=== PATIENT | male | born 1960 | race Caucasian/White ===

== ENCOUNTER 2024-05-22 10:32 | Emergency (ER) | payer OTHER ==
[2024-05-22] MEDS ORDERED: Iopamidol-370 76% 500 ML MDV (1 ML CHARGE) ONE (11:16)
[2024-05-22 11:42] LABS: Bacteria/HPF None Seen HPF (None Seen); Bilirubin Negative (Negative); Blood, Urine 1+ (Negative); CAUTI Indications for Culture Pelvic or flank pain; Clarity Clear (Clear); Glucose, Urine (Dipstick) Normal (Negative); Ketone, Urine Negative (Negative); Leukocyte Negative Leu/uL (Negative); Nitrite Negative (Negative); Protein, Urine (Dipstick) Negative (Neg-Trace); Specific Gravity, Urine 1.021 (1.002-1.036); Squamous Epithelial None Seen HPF (0-3); Urobilinogen Normal mg/dL (Less than 2); WBC/HPF 0-3 HPF (0-3); pH, Urine 6.5 (5.0-9.0)
[2024-05-22 11:43] LABS: Urine Culture Reflex No No
[2024-05-22 11:43] LABS: ALT (SGPT) 52 U/L (8-55); AST (SGOT) 67 U/L (5-34); Albumin 2.5 g/dL (3.4-4.8); Alkaline Phosphatase 88 U/L (40-110); Anion Gap 10 mmol/L (10-20); BUN (Urea Nitrogen) 8 mg/dL (8.4-25.7); Bilirubin, Total 2.3 mg/dL (0.2-1.2); Calc. Creatinine Clearance 0 mL/min (70-130); Carbon Dioxide 27 mmol/L (23-31); Chloride 104 mmol/L (98-107); Estimated GFR 96; Glucose 108 mg/dL (80-115); Lipase 17 U/L (8-78); Magnesium 1.6 mg/dL (1.6-2.6); Potassium 3.9 mmol/L (3.5-5.1); Protein, Total 6.5 g/dL (5.8-8.1); Sodium 137 mmol/L (136-145)
[2024-05-22 12:04] LABS: #Basophils 0.06 10x3/uL (0.0-0.2); %Basophils 1.1 % (0.0-1.0); %Eosinophils 14.6 % (0.0-10.0); %Lymphocytes 28.2 % (21.0-51.0); %Monocytes 8.6 % (0.0-10.0); %Neutrophils 47.3 % (42.0-75.0); Hematocrit 33.8 % (42.0-52.0); Hemoglobin 11.5 g/dL (14.0-18.0); Mean Corpuscular Hemoglobin 30.9 pg (27.0-31.0); Mean Corpuscular Volume 90.9 fL (78.0-98.0); Mean Platelet Volume 10.9 fL (7.4-10.4); Platelet Count 103 10x3/uL (130-400); Red Blood Cell (RBC) Count 3.72 mill/uL (4.70-6.10)
[2024-05-22 12:08] LABS: INR-International Normal Ratio 1.7; Prothrombin Time 19.9 sec (12.0-14.7)
[2024-05-22 12:09] LABS: PTT 41.1 sec (22.9-36.1)
[2024-05-22 13:17] LABS: Troponin I Less than 0.010 ng/mL (< 0.028)
[2024-05-22 13:57] LABS: RBC Count-Automated (BF) 34 /cu.mm; WBC/Nucleated-Auto (BF) 91 /cu.mm
[2024-05-22 14:30] LABS: BF Color Yellow; Body Fluid Source Ascites Body Fluid; Clarity Clear (Clear); Tube # 1
[2024-05-22 14:41] LABS: BF Segmented Neutrophils 11 %; Cell Count Non Hematic 65 %; Lymphocytes 24 %
== END 2024-05-22 15:34 | disposition home or self-care (01) ==
LOC: ERS 10:32
DX: R18.8 Other ascites (principal); I11.0 Hypertensive heart disease with heart failure; I50.9 Heart failure, unspecified
CPT/HCPCS: 12001; 49082; 71045; 74177; 76705; 80053; 81001; 82042; 82945; 83690; 83735; 83880; 84157; 84484; 85025; 85060; 85610; 85730; 87070; 87205; 89051; 93005; Q9967

== ENCOUNTER 2024-06-01 08:56 | Emergency (ER) | payer OTHER ==
[2024-06-01] MEDS ORDERED: Furosemide 40 MG (4 mL) VIAL ONE (10:35)
[2024-06-01 10:53] LABS: #Basophils 0.07 10x3/uL (0.0-0.2); %Basophils 1.2 % (0.0-1.0); %Eosinophils 16.6 % (0.0-10.0); %Lymphocytes 23.8 % (21.0-51.0); %Monocytes 11.6 % (0.0-10.0); %Neutrophils 46.6 % (42.0-75.0); Hematocrit 34.4 % (42.0-52.0); Hemoglobin 11.6 g/dL (14.0-18.0); Mean Corpuscular HGB CONC 33.7 g/dL (32.0-36.0); Mean Corpuscular Hemoglobin 30.1 pg (27.0-31.0); Mean Corpuscular Volume 89.4 fL (78.0-98.0); Platelet Count 119 10x3/uL (130-400); RBC Distribution Width 14.1 % (11.5-14.5); Red Blood Cell (RBC) Count 3.85 mill/uL (4.70-6.10)
[2024-06-01 11:07] LABS: ALT (SGPT) 45 U/L (8-55); AST (SGOT) 69 U/L (5-34); Albumin 2.6 g/dL (3.4-4.8); Alkaline Phosphatase 102 U/L (40-110); Anion Gap 11 mmol/L (10-20); BUN (Urea Nitrogen) 11 mg/dL (8.4-25.7); Bilirubin, Total 2.1 mg/dL (0.2-1.2); Calc. Creatinine Clearance 0 mL/min (70-130); Calcium 8.1 mg/dL (7.8-10.44); Carbon Dioxide 27 mmol/L (23-31); Chloride 104 mmol/L (98-107); Estimated GFR 96; Glucose 100 mg/dL (80-115); Potassium 4.4 mmol/L (3.5-5.1); Protein, Total 6.6 g/dL (5.8-8.1); Sodium 138 mmol/L (136-145)
[2024-06-01 11:33] LABS: Troponin I 0.014 ng/mL (< 0.028)
[2024-06-01 11:34] LABS: Bacteria/HPF None Seen HPF (None Seen); Bilirubin Negative (Negative); Blood, Urine 1+ (Negative); CAUTI Indications for Culture Pelvic or flank pain; Clarity Clear (Clear); Glucose, Urine (Dipstick) Normal (Negative); Ketone, Urine Negative (Negative); Leukocyte Negative Leu/uL (Negative); Nitrite Negative (Negative); Protein, Urine (Dipstick) Negative (Neg-Trace); Specific Gravity, Urine 1.007 (1.002-1.036); Squamous Epithelial 0-3 HPF (0-3); Urobilinogen Normal mg/dL (Less than 2); WBC/HPF 0-3 HPF (0-3)
[2024-06-01 11:35] LABS: Urine Culture Reflex No No
== END 2024-06-01 12:10 | disposition home or self-care (01) ==
LOC: ERS 08:56
DX: R18.8 Other ascites (principal); I11.0 Hypertensive heart disease with heart failure; I50.9 Heart failure, unspecified
CPT/HCPCS: 71045; 80053; 81001; 83880; 84484; 85025; 93005; 96374; J1940

== ENCOUNTER 2024-06-06 10:06 | Emergency (ER) | payer OTHER ==
[2024-06-06 10:35] LABS: #Basophils 0.09 10x3/uL (0.0-0.2); %Basophils 1.1 % (0.0-1.0); %Eosinophils 10.6 % (0.0-10.0); %Lymphocytes 19.8 % (21.0-51.0); %Monocytes 8.7 % (0.0-10.0); %Neutrophils 59.6 % (42.0-75.0); Hematocrit 31.2 % (42.0-52.0); Hemoglobin 10.6 g/dL (14.0-18.0); Mean Corpuscular Hemoglobin 30.4 pg (27.0-31.0); Mean Corpuscular Volume 89.4 fL (78.0-98.0); Mean Platelet Volume 10.7 fL (7.4-10.4); Platelet Count 116 10x3/uL (130-400); RBC Distribution Width 14.6 % (11.5-14.5); Red Blood Cell (RBC) Count 3.49 mill/uL (4.70-6.10)
[2024-06-06 10:47] LABS: ALT (SGPT) 58 U/L (8-55); AST (SGOT) 85 U/L (5-34); Albumin 2.3 g/dL (3.4-4.8); Alkaline Phosphatase 96 U/L (40-110); Anion Gap 7 mmol/L (10-20); BUN (Urea Nitrogen) 11 mg/dL (8.4-25.7); Bilirubin, Total 2.4 mg/dL (0.2-1.2); Calc. Creatinine Clearance 0 mL/min (70-130); Calcium 8.1 mg/dL (7.8-10.44); Carbon Dioxide 28 mmol/L (23-31); Chloride 103 mmol/L (98-107); Estimated GFR 95; Globulin 4.2 g/dL (2.4-3.5); Glucose 125 mg/dL (80-115); Potassium 3.8 mmol/L (3.5-5.1); Protein, Total 6.5 g/dL (5.8-8.1); Sodium 134 mmol/L (136-145)
[2024-06-06 10:52] LABS: Troponin I 0.014 ng/mL (< 0.028)
[2024-06-06 10:54] LABS: Anisocytosis SLIGHT = 6-15 cells HPF (0-5); Platelet Adequacy Comment Platelets Decreased; RBC Morphology Within Normal Limits
== END 2024-06-06 14:08 | disposition home or self-care (01) ==
LOC: ERS 10:06
DX: E87.70 Fluid overload, unspecified (principal); R18.8 Other ascites; I11.0 Hypertensive heart disease with heart failure; I50.9 Heart failure, unspecified; Z72.0 Tobacco use
CPT/HCPCS: 49083; 71046; 80053; 83880; 84484; 85025; 93005; 94760

== ENCOUNTER 2024-06-07 08:56 | Emergency (ER) | payer OTHER | END 2024-06-07 10:34 | disposition home or self-care (01) | LOC: ERS 08:56 | DX: N50.89 Other specified disorders of the male genital organs (principal); I11.0 Hypertensive heart disease with heart failure; I50.9 Heart failure, unspecified | CPT/HCPCS: 99283 ==

== ENCOUNTER 2024-07-01 10:08 | Day surgery (SDC) | payer OTHER ==
[2024-07-01] MEDS ORDERED: Sodium Bicarbonate 2.5 MEQ/5 ML SDV ONE (10:45)
[2024-07-01] MEDS ORDERED: Lidocaine 1% PF 5 ML VIAL ONE (10:45)
== END 2024-07-01 11:30 | disposition home or self-care (01) ==
LOC: ULT 10:08
PROVIDERS: ATTEND Internal Medicine
DX: K70.31 Alcoholic cirrhosis of liver with ascites (principal); Z53.8 Procedure and treatment not carried out for other reasons; I50.9 Heart failure, unspecified; Z79.899 Other long term (current) drug therapy
CPT/HCPCS: 76705

== ENCOUNTER → 2024-07-12 | Day surgery (SDC) | payer OTHER | LOC: ULT 12:49 | PROVIDERS: ATTEND Internal Medicine | PROC: 0W9G30Z Drainage of Peritoneal Cavity with Drainage Device, Percutaneous Approach (ICD-10-PCS; principal; 2024-07-12) | DX: K70.31 Alcoholic cirrhosis of liver with ascites (principal); I50.9 Heart failure, unspecified; R60.0 Localized edema | CPT/HCPCS: 76705 ==